=== PATIENT | male | born 1945 | race Caucasian/White ===

== ENCOUNTER 2022-10-05 09:58 | Day surgery (SDC) | payer MEDICARE, OTHER ==
[~2022-10-05] VITALS: Ht 180.3 cm; Wt 88.0 kg
[~2022-10-05 09:58] MED LIST: ASPI81CH PO; ATEN25; Amiodarone HCl200 MG PO; Cardizem CD 24240 MG PO; DIGO.125 PO; ERYT1OIN RIGHTEYE; LEVSOD100; LOVA20; LOVA40; METO25; NEBI10 PO; PACERONE100 M1 PO; PRAV20 PO
[2022-10-05] MEDS ORDERED: LATA.005SO BOTHEYES (10:46)
[2022-10-05] MEDS ORDERED: LISI20 PO (10:46)
[2022-10-05] MEDS ORDERED: XARELTO20 MG PO (10:47)
[2022-10-05] MEDS ORDERED: HYDCHL25 PO (10:47)
[2022-10-05] MEDS ORDERED: TIMO.25OPS LEFTEYE (10:48)
--- NOTE | 2022-10-05 13:49 | NUR ---
PT VERBALIZES UNDERSTANDING WRITTEN AND VERBAL INSTRUCTIONS. VEA. AMY. PT DRESSING SELF. ICEPACK TO LEFT CHEST WALL. DR GREWAL IN ROOM DISCUSSING PLAN OF CARE. PT IV DC'D. CATH INTACT. PRESSURE DSG APPLIED. NO BLEEDING NOTED.
--- NOTE | 2022-10-05 13:55 | NUR ---
PT DRESSED, DR GREWAL BY TO REVIEW PACER SITE AND PLAN OF CARE, PT IV DC'D INTACT, PT AMB OUT WITH ICE PACK ON OWN. OK FOR PT TO DRIVE HOME, NO SEDATION GIVEN DURING PROCEDURE PER DR GREWAL
== END 2022-10-05 13:58 | disposition home or self-care (01) ==
LOC: MHTC 09:58
DX: Z45.010 Encounter for checking and testing of cardiac pacemaker pulse generator [battery] (principal); R06.02 Shortness of breath; I48.0 Paroxysmal atrial fibrillation; I49.5 Sick sinus syndrome; I10 Essential (primary) hypertension
CPT/HCPCS: 33228; C1785; J0690; J1644; J7030; J7040